=== PATIENT | male | born 1985 | race Caucasian/White ===

== ENCOUNTER → 2021-01-22 | Outpatient (CLI) | payer BC | LOC: SJCVCIMAG 13:32 | PROVIDERS: ATTEND Internal Medicine | DX: R07.9 Chest pain, unspecified (principal); R00.2 Palpitations; E78.5 Hyperlipidemia, unspecified; F17.200 Nicotine dependence, unspecified, uncomplicated; R06.00 Dyspnea, unspecified; R53.83 Other fatigue; Z82.49 Family history of ischemic heart disease and other diseases of the circulatory system ==